=== PATIENT | male | born 1955 | race African-American/Black ===

== ENCOUNTER 2017-07-03 12:47 | Observation (INO) | payer SELFPAY ==
[~2017-07-03] VITALS: Ht 172.7 cm; Wt 81.5 kg
[~2017-07-03 12:47] MED LIST: ZYPR5TAB PO
[2017-07-03 12:52] VITALS: BP 135/76; PULSE 57; RESP 12; TEMP 97.5; O2SAT 97
--- NOTE | 2017-07-03 13:02 | PD ---
HPI Chief Complaint: Chest Pain Time Seen by Provider: 13:00 Travel History International Travel<30 days: No Contact w/Intl Traveler<30days: No Traveled to known affect area: No History of Present Illness HPI 61-year-old male with history of hypertension, schizophrenia, tobacco use, cocaine use, presents to the emergency department for evaluation of left-sided chest pain. This has been intermittent for 2 days. He describes it as left- sided rib pain that cannot be reproduced but it is making his left arm go numb at times. Pain is sharp. He states is becoming more consistent, rather than intermittent. He has felt mildly short of breath. No nausea or vomiting. No sensation of lightheadedness. Patient does have a history of cocaine use. Denies any recent illnesses, fever, or chills. He has no other symptoms to report. PFSH Past Medical History Hx Anticoagulant Therapy: No Cardiovascular Problems: No Chemotherapy: No Cerebrovascular Accident: No Diabetes: No Diminished Hearing: No Respiratory: No Social History Alcohol Use: Yes (MIX DRINKS, BEER OCCAS.) Tobacco Use: Yes (1 PPD) Substance Use: No Allergies-Medications (Allergen,Severity, Reaction): Coded Allergies: No Known Allergies (Verified Allergy, Unknown, 07/03/17) Reported Meds & Prescriptions Reported Meds & Active Scripts Active No Active Prescriptions or Reported Medications Review of Systems Except as stated in HPI: all other systems reviewed are Neg Physical Exam Narrative GENERAL: Well-nourished male patient in no acute distress. SKIN: Focused skin assessment warm/dry. HEAD: Atraumatic. Normocephalic. EYES: Pupils equal and round. No scleral icterus. No injection or drainage. ENT: No nasal bleeding or discharge. Mucous membranes pink and moist. NECK: Trachea midline. No JVD. CARDIOVASCULAR: Regular rate and rhythm. No murmur appreciated. RESPIRATORY: No accessory muscle use. Clear to auscultation. Breath sounds equal bilaterally. GASTROINTESTINAL: Abdomen, nondistended. Left upper quadrant tenderness to palpation. MUSCULOSKELETAL: No obvious deformities. No clubbing. No cyanosis. No edema. NEUROLOGICAL: Awake and alert. No obvious cranial nerve deficits. Motor grossly within normal limits. Normal speech. PSYCHIATRIC: Appropriate mood and affect; insight and judgment normal. Data Data Last Documented VS Vital Signs Date Time Temp Pulse Resp B/P (MAP) Pulse Ox O2 Delivery O2 Flow Rate FiO2 07/03/17 13:48 65 14 149/95 (113) 100 153/93 (113) 07/03/17 13:05 Room Air 07/03/17 12:52 97.5 Orders Orders Electrocardiogram (07/03/17 13:06) Ckmb (Isoenzyme) Profile (07/03/17 13:06) Complete Blood Count With Diff (07/03/17 13:06) Comprehensive Metabolic Panel (07/03/17 13:06) Magnesium (Mg) (07/03/17 13:06) Prothrombin Time / Inr (Pt) (07/03/17 13:06) Act Partial Throm Time (Ptt) (07/03/17 13:06) Troponin I (07/03/17 13:06) Lipase (07/03/17 13:06) Ecg Monitoring (07/03/17 13:06) Bilateral Bp Monitoring (07/03/17 13:06) Iv Access Insert/Monitor (07/03/17 13:06) Oximetry (07/03/17 13:06) Oxygen Administration (07/03/17 13:06) Aspirin Chew (Aspirin Chew) (07/03/17 13:15) Sodium Chloride 0.9% Flush (Ns Flush) (07/03/17 13:15) Chest, Pa & Lat (07/03/17 13:06) Sodium Chlor 0.9% 1000 Ml Inj (Ns 1000 M (07/03/17 13:15) CKMB (07/03/17 13:11) CKMB% (07/03/17 13:11) Admit Order (Ed Use Only) (07/03/17 14:28) Labs Laboratory Tests Test 07/03/17 13:11 White Blood Count 5.5 TH/MM3 Red Blood Count 4.45 MIL/MM3 Hemoglobin 13.0 GM/DL Hematocrit 39.4 % Mean Corpuscular Volume 88.7 FL Mean Corpuscular Hemoglobin 29.3 PG Mean Corpuscular Hemoglobin Concent 33.1 % Red Cell Distribution Width 14.3 % Platelet Count 228 TH/MM3 Mean Platelet Volume 8.0 FL Neutrophils (%) (Auto) 49.2 % Lymphocytes (%) (Auto) 38.3 % Monocytes (%) (Auto) 8.5 % Eosinophils (%) (Auto) 3.2 % Basophils (%) (Auto) 0.8 % Neutrophils # (Auto) 2.7 TH/MM3 Lymphocytes # (Auto) 2.1 TH/MM3 Monocytes # (Auto) 0.5 TH/MM3 Eosinophils # (Auto) 0.2 TH/MM3 Basophils # (Auto) 0.0 TH/MM3 CBC Comment DIFF FINAL Differential Comment Prothrombin Time 9.9 SEC Prothromb Time International Ratio 1.0 RATIO Activated Partial Thromboplast Time 27.5 SEC Blood Urea Nitrogen 11 MG/DL Creatinine 1.50 MG/DL Random Glucose 137 MG/DL Total Protein 6.8 GM/DL Albumin 3.2 GM/DL Calcium Level 8.5 MG/DL Magnesium Level 1.9 MG/DL Alkaline Phosphatase 118 U/L Aspartate Amino Transf (AST/SGOT) 25 U/L Alanine Aminotransferase (ALT/SGPT) 28 U/L Total Bilirubin 0.3 MG/DL Sodium Level 138 MEQ/L Potassium Level 3.6 MEQ/L Chloride Level 104 MEQ/L Carbon Dioxide Level 27.4 MEQ/L Anion Gap 7 MEQ/L Estimat Glomerular Filtration Rate 58 ML/MIN Total Creatine Kinase 200 U/L Creatine Kinase MB 1.6 NG/ML Troponin I LESS THAN 0.02 NG/ML Lipase 111 U/L MDM Medical Decision Making Medical Screen Exam Complete: Yes Emergency Medical Condition: Yes Medical Record Reviewed: Yes Differential Diagnosis Pancreatitis versus ACS versus pleuritic pain versus chest wall pain Narrative Course 61-year-old male presents to emergency department for evaluation of chest pain, left-sided with associated left arm numbness. This is been intermittently occurring over last 2 days. Patient appears overall well. EKG is complete and reviewed by my attending physician without acute abnormality. Patient does have left upper quadrant tenderness to palpation. Lab work is initiated. I'll include a lipase for evaluation of possible pancreatitis. Laboratory Tests Test 07/03/17 13:11 White Blood Count 5.5 TH/MM3 Red Blood Count 4.45 MIL/MM3 Hemoglobin 13.0 GM/DL Hematocrit 39.4 % Mean Corpuscular Volume 88.7 FL Mean Corpuscular Hemoglobin 29.3 PG Mean Corpuscular Hemoglobin Concent 33.1 % Red Cell Distribution Width 14.3 % Platelet Count 228 TH/MM3 Mean Platelet Volume 8.0 FL Neutrophils (%) (Auto) 49.2 % Lymphocytes (%) (Auto) 38.3 % Monocytes (%) (Auto) 8.5 % Eosinophils (%) (Auto) 3.2 % Basophils (%) (Auto) 0.8 % Neutrophils # (Auto) 2.7 TH/MM3 Lymphocytes # (Auto) 2.1 TH/MM3 Monocytes # (Auto) 0.5 TH/MM3 Eosinophils # (Auto) 0.2 TH/MM3 Basophils # (Auto) 0.0 TH/MM3 CBC Comment DIFF FINAL Differential Comment Prothrombin Time 9.9 SEC Prothromb Time International Ratio 1.0 RATIO Activated Partial Thromboplast Time 27.5 SEC Blood Urea Nitrogen 11 MG/DL Creatinine 1.50 MG/DL Random Glucose 137 MG/DL Total Protein 6.8 GM/DL Albumin 3.2 GM/DL Calcium Level 8.5 MG/DL Magnesium Level 1.9 MG/DL Alkaline Phosphatase 118 U/L Aspartate Amino Transf (AST/SGOT) 25 U/L Alanine Aminotransferase (ALT/SGPT) 28 U/L Total Bilirubin 0.3 MG/DL Sodium Level 138 MEQ/L Potassium Level 3.6 MEQ/L Chloride Level 104 MEQ/L Carbon Dioxide Level 27.4 MEQ/L Anion Gap 7 MEQ/L Estimat Glomerular Filtration Rate 58 ML/MIN Total Creatine Kinase 200 U/L Creatine Kinase MB 1.6 NG/ML Troponin I LESS THAN 0.02 NG/ML Lipase 111 U/L Last Impressions Chest X-Ray 07/03/17 1306 Signed Impressions: Service Date/Time: Monday, July 03, 2017 13:21 - CONCLUSION: No acute disease. Vernon Pérez MD Lab work is without acute concern. Chest x-ray is with no acute disease. I discussed the patient my attending physician who agrees the patient benefit from further evaluation and observation the chest pain center. Admission order has been written. Diagnosis Primary Impression: Chest pain Qualified Codes: R07.9 - Chest pain, unspecified Admitting Information Admitting Physician Requests: Observation Scripts No Active Prescriptions or Reported Meds Condition: Stable Diya Robert Jul 03, 2017 13:02
[2017-07-03 13:05] VITALS: BP 142/90; PULSE 51; RESP 16; O2SAT 98
[2017-07-03] MEDS ORDERED: SODIUM CHLOR 0.9% 1000 ML INJ 1,000 ML IV ONE (13:15)
[2017-07-03] MEDS ORDERED: SODIUM CHLORIDE 0.9% FLUSH 10 ML FLUSH IVF PRN (13:15)
[2017-07-03] MEDS ORDERED: ASPIRIN 81 MG CHEW TAB PO ONE (13:15)
[2017-07-03 13:26] LABS: AUTOMATED NEUTROPHIL # 2.7 TH/MM3 (1.8-7.7); BASOPHIL % 0.8 % (0.0-2.0); EOSINOPHIL # 0.2 TH/MM3 (0-0.4); EOSINOPHIL % 3.2 % (0.0-4.0); HEMATOCRIT 39.4 % (39.0-51.0); LYMPH % 38.3 % (9.0-44.0); LYMPHOCYTE # 2.1 TH/MM3 (1.0-4.8); MEAN CELL VOLUME 88.7 FL (80.0-100.0); MEAN CORPUSCULAR HEMOGLOBIN 29.3 PG (27.0-34.0); MEAN CORPUSCULAR HGB CONC 33.1 % (32.0-36.0); MONO % 8.5 % (0.0-8.0); MONOCYTE # 0.5 TH/MM3 (0-0.9); NEUT % 49.2 % (16.0-70.0); PLATELET COUNT 228 TH/MM3 (150-450); RED BLOOD COUNT 4.45 MIL/MM3 (4.50-5.90); RED CELL DISTRIBUTION WIDTH 14.3 % (11.6-17.2); WHITE BLOOD COUNT 5.5 TH/MM3 (4.0-11.0)
[2017-07-03 13:33] LABS: PROTHROMBIN TIME - PATIENT 9.9 SEC (9.8-11.6)
--- NOTE | 2017-07-03 13:39 | RADRPT ---
EXAM DATE/TIME: 07/03/2017 13:21 [facility] COMPARISON: No previous studies available for comparison. INDICATIONS : Chest pain. MEDICAL HISTORY : None. SURGICAL HISTORY : None. ENCOUNTER: Initial ACUITY: 3 days PAIN SCORE: 8/10 LOCATION: Bilateral chest Left lateral thoracic region. FINDINGS: PA and lateral views of the chest demonstrate the lungs to be symmetrically aerated without evidence of mass, infiltrate or effusion. The cardiomediastinal contours are unremarkable. Osseous structure s are intact. CONCLUSION: No acute disease. Vernon Pérez MD on July 03, 2017 at 13:36 Board Certified Radiologist. This report was verified electronically.
[2017-07-03 13:44] LABS: ALBUMIN 3.2 GM/DL (3.4-5.0); ALT (GPT) 28 U/L (12-78); AST (GOT) 25 U/L (15-37); BICARBONATE 27.4 MEQ/L (21.0-32.0); BLOOD UREA NITROGEN 11 MG/DL (7-18); CALCIUM 8.5 MG/DL (8.5-10.1); CHLORIDE 104 MEQ/L (98-107); GLOMERULAR FILTRATION RATE 58 ML/MIN (>89); GLUCOSE,RANDOM 137 MG/DL (74-106); SODIUM (NA) 138 MEQ/L (136-145)
[2017-07-03 13:48] VITALS: BP_SYST 149; BP_SYST 153; BP_DIAS 93; BP_DIAS 95; PULSE 65; RESP 14; O2SAT 100
[2017-07-03 14:02] LABS: ALKALINE PHOSPHATASE 118 U/L (45-117); MAGNESIUM 1.9 MG/DL (1.5-2.5); TOTAL BILIRUBIN ADULT 0.3 MG/DL (0.2-1.0); TOTAL PROTEIN 6.8 GM/DL (6.4-8.2); TROPONIN I LESS THAN 0.02 NG/ML (0.02-0.05)
[2017-07-03] MEDS ORDERED: ACETAMINOPHEN 500 MG CPLT PO PRN (14:45)
[2017-07-03] MEDS ORDERED: ONDANSETRON HCL 4 MG/2 ML VIAL IV PUSH PRN (14:45)
[2017-07-03] MEDS ORDERED: NITROGLYCERIN 0.4 MG SL 25 TABS/BTL SL PRN (14:45)
[2017-07-03 15:52] VITALS: BP 134/79; PULSE 50; RESP 17; TEMP 96.3; O2SAT 98
--- NOTE | 2017-07-03 15:59 | HHI.HP ---
[facility] Service Chest pain center Primary Care Physician No Primary Care Physician Chief Complaint Sharp left chest pain History of Present Illness 61-year-old black male sleeping with head covered and not arousable with verbal stimulation. By shaking his shoulder he would arouse long enough to answer single questions and immediately fade out again. History is very difficult to obtain but it appears he has been having sharp left-sided chest pain for about 3 days. This pain is much worse when he tries to take a deep breath and with certain motion. He gets relief at times by lifting his left arm and putting it in the vertical position. The pain is constant but but much sharper at times. It is interfering with his breathing. He admits to cocaine use and believes it has been several days since he used any. He admits to additional drug use but denies recent. He indicates he drinks some alcohol but when asked if he drinks a sixpack he answers yes. He does not remember any recent falls or fights or trauma to his left chest however in his current state it is unlikely he would have much recollection. He has a history of schizophrenia hypertension hyperlipidemia and is a heavy smoker "a lot". Additional information was very difficult to obtain Past Family Social History Allergies: Coded Allergies: No Known Allergies (Verified Allergy, Unknown, 07/03/17) Past Medical History Schizophrenia hypertension hyperlipidemia Past Surgical History He cannot provide any surgical history Reported Medications Reported Meds & Active Scripts Active No Active Prescriptions or Reported Medications Admits to using cocaine and other drugs Active Ordered Medications Current Medications Medications (Trade) Dose Ordered Sig/Carlos Route Start Time Stop Time Status Last Admin (NS Flush) 2 ml UNSCH PRN IVF 07/03/17 13:15 07/03/17 13:46 (NS Flush) 2 ml BID IV FLUSH 07/03/17 21:00 (Tylenol) 500 mg Q4H PRN PO 07/03/17 14:45 (Zofran Inj) 4 mg Q6H PRN IV PUSH 07/03/17 14:45 (Nitrostat Sl) 0.4 mg Q5M PRN SL 07/03/17 14:45 (Aspirin) 325 mg DAILY PO 07/04/17 09:00 Family History Mother and father are but he can provide no additional information Social History Alcohol heavy Tobacco greater than a pack a day Cocaine recurrent "Other drugs" Physical Exam Vital Signs Vital Signs Date Time Temp Pulse Resp B/P (MAP) Pulse Ox O2 Delivery O2 Flow Rate FiO2 07/03/17 15:16 07/03/17 15:15 50 07/03/17 13:48 65 14 149/95 (113) 100 153/93 (113) 07/03/17 13:05 51 16 142/90 (107) 98 Room Air 07/03/17 12:52 97.5 57 12 135/76 (95) 97 Room Air Physical Exam GENERAL: Somnolent black male with his head covered by the blanket and arousable only with sharp physical stimulation SKIN: Warm and dry. HEAD: Atraumatic. Normocephalic. EYES: Pupils equal and round. No scleral icterus. Conjunctiva injected or drainage. ENT: No nasal bleeding or discharge. Mucous membranes pink and moist. Very poor dental health NECK: Trachea midline. No JVD. CARDIOVASCULAR: Regular rate and rhythm. RESPIRATORY: Exquisitely painful to pressure over the left lower ribs. Breath sounds significantly diminished with guarding GASTROINTESTINAL: Abdomen soft, non-tender, nondistended. Hepatic and splenic margins not palpable. MUSCULOSKELETAL: Extremities without clubbing, cyanosis, or edema. No obvious deformities. NEUROLOGICAL: Very somnolent will answer only one question at a time before he dropped off to sleep. Cranial nerve evaluation not possible patient cannot follow instructions. Appears to move all extremities but further testing not possible. PSYCHIATRIC: Cannot evaluate Laboratory Laboratory Tests Test 07/03/17 13:11 White Blood Count 5.5 Red Blood Count 4.45 Hemoglobin 13.0 Hematocrit 39.4 Mean Corpuscular Volume 88.7 Mean Corpuscular Hemoglobin 29.3 Mean Corpuscular Hemoglobin Concent 33.1 Red Cell Distribution Width 14.3 Platelet Count 228 Mean Platelet Volume 8.0 Neutrophils (%) (Auto) 49.2 Lymphocytes (%) (Auto) 38.3 Monocytes (%) (Auto) 8.5 Eosinophils (%) (Auto) 3.2 Basophils (%) (Auto) 0.8 Neutrophils # (Auto) 2.7 Lymphocytes # (Auto) 2.1 Monocytes # (Auto) 0.5 Eosinophils # (Auto) 0.2 Basophils # (Auto) 0.0 CBC Comment DIFF FINAL Differential Comment Prothrombin Time 9.9 Prothromb Time International Ratio 1.0 Activated Partial Thromboplast Time 27.5 Blood Urea Nitrogen 11 Creatinine 1.50 Random Glucose 137 Total Protein 6.8 Albumin 3.2 Calcium Level 8.5 Magnesium Level 1.9 Alkaline Phosphatase 118 Aspartate Amino Transf (AST/SGOT) 25 Alanine Aminotransferase (ALT/SGPT) 28 Total Bilirubin 0.3 Sodium Level 138 Potassium Level 3.6 Chloride Level 104 Carbon Dioxide Level 27.4 Anion Gap 7 Estimat Glomerular Filtration Rate 58 Total Creatine Kinase 200 Creatine Kinase MB 1.6 Troponin I LESS THAN 0.02 Lipase 111 Result Diagram: 07/03/17 1311 07/03/17 1311 Imaging Repeat chest x-ray with focus on room she will be obtained with suspicion of rib fractures Course We will rule out for ACS using standard protocol. However patient's history and physical exam is entirely consistent with chest wall trauma of some sort. Repeat chest x-ray will be evaluated for rib fractures. If the patient rules out he is not a candidate for exercise stress test due to his somnolence. He will be discharged with instructions for outpatient follow-up. He was reminded that he needs to stop smoking and stop doing drugs as well as his alcohol. Caprini VTE Risk Assessment Caprini VTE Risk Assessment: No/Low Risk (score <= 1) Caprini Risk Assessment Model Point Value = 1 Point Value = 2 Point Value = 3 Point Value = 5 Age 41-60 Minor surgery BMI > 25 kg/m2 Swollen legs Varicose veins or History of unexplained or recurrent spontaneous Oral contraceptives or hormone replacement Sepsis (< 1 month) Serious lung disease, including pneumonia (< 1 month) Abnormal pulmonary function Acute myocardial infarction Congestive heart failure (< 1 month) History of inflammatory bowel disease Medical patient at bed rest Age 61-74 Arthroscopic surgery Major open surgery (> 45 min) Laparoscopic surgery (> 45 min) Malignancy Confined to bed (> 72 hours) Immobilizing plaster cast Central venous access Age >= 75 History of VTE Family history of VTE Factor V Leiden Prothrombin [id number] Lupus anticoagulant Anticardiolipin antibodies Elevated serum homocysteine Heparin-induced thrombocytopenia Other congenital or acquired thrombophilia Stroke (< 1 month) Elective arthroplasty Hip, pelvis, or leg fracture Acute spinal cord injury (< 1 month) Prophylaxis Regimen Total Risk Factor Score Risk Level Prophylaxis Regimen 0-1 Low Early ambulation 2 Moderate Order ONE of the following: *Sequential Compression Device (SCD) *Heparin 5000 units SQ BID 3-4 Higher Order ONE of the following medications: *Heparin 5000 units SQ TID *Enoxaparin/Lovenox 40 mg SQ daily (WT < 150 kg, CrCl > 30 mL/min) *Enoxaparin/Lovenox 30 mg SQ daily (WT < 150 kg, CrCl > 10-29 mL/min) *Enoxaparin/Lovenox 30 mg SQ BID (WT < 150 kg, CrCl > 30 mL/min) AND/OR *Sequential Compression Device (SCD) 5 or more Highest Order ONE of the following medications: *Heparin 5000 units SQ TID (Preferred with Epidurals) *Enoxaparin/Lovenox 40 mg SQ daily (WT < 150 kg, CrCl > 30 mL/min) *Enoxaparin/Lovenox 30 mg SQ daily (WT < 150 kg, CrCl > 10-29 mL/min) *Enoxaparin/Lovenox 30 mg SQ BID (WT < 150 kg, CrCl > 30 mL/min) AND *Sequential Compression Device (SCD) Onel Phillip MD Jul 03, 2017 15:59
[2017-07-03 16:25] VITALS: PULSE 69
--- NOTE | 2017-07-03 16:32 | EKG ---
Date Performed: 07/03/2017 Time Performed: 13:05:27 PTAGE: 61 years EKG: SINUS BRADYCARDIA BORDERLINE ECG NO PREVIOUS TRACING DOCTOR: Onel Phillip Interpretating Date/Time 07/03/2017 16:32:22
[2017-07-03 17:14] LABS: TROPONIN I LESS THAN 0.02 NG/ML (0.02-0.05)
[2017-07-03] MEDS: SODIUM CHLORIDE 0.9% FLUSH 10 ML FLUSH IV FLUSH SCH (19:38)
[2017-07-03 20:35] LABS: TROPONIN I LESS THAN 0.02 NG/ML (0.02-0.05)
[2017-07-03 20:43] VITALS: BP 125/78; PULSE 52; RESP 18; TEMP 98.2; O2SAT 100
[2017-07-04 00:59] VITALS: PULSE 58
[2017-07-04 03:38] VITALS: BP 139/87; PULSE 51; RESP 18; TEMP 98.1; O2SAT 99
[2017-07-04 07:22] VITALS: BP 143/94; PULSE 49; RESP 18; TEMP 97.3; O2SAT 93
[2017-07-04] MEDS: SODIUM CHLORIDE 0.9% FLUSH 10 ML FLUSH IV FLUSH SCH (08:13)
[2017-07-04] MEDS ORDERED: ASPIRIN 325 MG TAB PO SCH (09:00)
[2017-07-04] MEDS ORDERED: REGADENOSON INJ 0.4 MG/5 ML SYR ONE (10:11)
--- NOTE | 2017-07-04 11:32 | RADRPT ---
EXAM DATE/TIME: 07/04/2017 10:07 [facility] COMPARISON: No previous studies available for comparison. INDICATIONS : Left sided chest pain for three days. Angina. DOSE: 25.4 mCi Tc99m Myoview at stress. 8.5 mCi Tc99m Myoview at rest. 0.4 mg Lexiscan STRESS SYMPTOMS: Dyspnea and weakness. EJECTION FRACTION: 46% MEDICAL HISTORY : Hypertension. Schizophrenia. SURGICAL HISTORY : None. ENCOUNTER: Initial ACUITY: 3 days PAIN SCALE: 5/10 LOCATION: Left chest TECHNIQUE: The patient underwent pharmacologic stress with infusion of prescribed dose. Continuous ECG tracing was monitored during stress. Gated SPECT imaging was performed after stress and conventional SPECT i maging was performed at rest. The examination was performed on a SPECT/CT scanner, both attenuation and non-corrected datasets were reviewed. FINDINGS: DISTRIBUTION: The maximum perfused segment at stress is in the anterior wall. PERFUSION STUDY: The pattern of perfusion at stress is within normal limits. GATED STUDY: There is intact wall motion and thickening without hypokinetic or dyskinetic segments. CONCLUSION: No ischemia is seen. The ejection fraction is in the low-normal range of 46%. RISK CATEGORY: Low (<1% Annual Mortality Rate) Vernon Pérez MD on July 04, 2017 at 11:29 Board Certified Radiologist. This report was verified electronically.
--- NOTE | 2017-07-04 12:13 | HHI.DCPOC ---
Discharge Care Plan Diagnosis: (1) Musculoskeletal chest pain (2) Substance abuse Goals to Promote Your Health * To prevent worsening of your condition and complications * To maintain your health at the optimal level Directions to Meet Your Goals Take your medications as prescribed Follow your dietary instruction Follow activity as directed Keep your appointments as scheduled Take your immunizations and boosters as scheduled If your symptoms worsen call your PCP, if no PCP go to Urgent Care Center or Emergency Room Smoking is Dangerous to Your Health. Avoid second hand smoke Call the 24-hour hour crisis hotline for domestic abuse at Mame Reina Jul 04, 2017 12:13
--- NOTE | 2017-07-04 12:20 | HHI.DS ---
Discharge Summary Admission Date Jul 03, 2017 at 14:29 Discharge Date: Jul 04, 2017 Admitting Diagnosis chest pain (1) Musculoskeletal chest pain Diagnosis: Principal ICD Codes: R07.89 - Other chest pain Status: Acute (2) Substance abuse Diagnosis: Principal ICD Codes: F19.10 - Other psychoactive substance abuse, uncomplicated Status: Acute Procedures Last 48 hours Impressions Chest X-Ray 07/03/17 1306 Signed Impressions: Service Date/Time: Monday, July 03, 2017 13:21 - CONCLUSION: No acute disease. Vernon Pérez MD Brief History 61-year-old male with history of schizophrenia, substance abuse, hypertension hyperlipidemia presents to the emergency room for further evaluation 3 chest pain. Chest pain center. Ruled out by 3 sets of EKGs, cardiac enzymes, monitor overnight. He evaluated by Dr. Phillip. Chest discomfort suggestive of musculoskeletal pain due to easily reproduced with palpation, grimaces with movement and hurting to take a deep breath. Due to multiple risk factors proceeded with chemical stress test. Encouraged and stressed the importance of not using cocaine and quitting smoking. CBC/BMP: 07/03/17 1311 07/03/17 1311 Significant Findings Laboratory Tests Test 07/03/17 13:11 07/03/17 16:00 07/03/17 19:35 07/03/17 22:50 Red Blood Count 4.45 MIL/MM3 (4.50-5.90) Monocytes (%) (Auto) 8.5 % (0.0-8.0) Creatinine 1.50 MG/DL (0.60-1.30) Random Glucose 137 MG/DL (74-106) Albumin 3.2 GM/DL (3.4-5.0) Alkaline Phosphatase 118 U/L (45-117) Estimat Glomerular Filtration Rate 58 ML/MIN (>89) Troponin I LESS THAN 0.02 NG/ML LESS THAN 0.02 NG/ML LESS THAN 0.02 NG/ML Urine Cocaine Screen POS (NEG) PE at Discharge GENERAL: Alert WN, WD, NAD, pleasant, Alyssa male HEAD: NC, AT CV: RRR, without murmur, rub, gallop, no JVD, S1-S2 no S3-S4. Chest wall tender with palpation and movement. RESP: Clear lungs throughout bilateral, no crackles, wheeze, rhonchi, symmetrical chest rise, nonlabored, able to speak in full sentences MS: Normal tone 4 extremities, full range of motion PSYCH: A+O 3, pleasant affect, appropriate speech, mood. Apologetic due to drowsiness yesterday during exam. SKIN: Normal turgor, normal texture Pt Condition on Discharge: Good Discharge Disposition: Discharge Home Discharge Instructions DIET: Follow Instructions for: Heart Healthy Diet Activities you can perform: Regular-No Restrictions Mame Reina Jul 04, 2017 12:20
[2017-07-04 12:48] VITALS: O2SAT 98
--- NOTE | 2017-07-04 14:32 | EKG ---
Date Performed: 07/03/2017 Time Performed: 20:52:42 PTAGE: 61 years EKG: SINUS BRADYCARDIA BORDERLINE ECG NO SIG CHANGE PREVIOUS TRACING : 07/03/2017 16.20 DOCTOR: Onel Phillip Interpretating Date/Time 07/04/2017 14:31:30
--- NOTE | 2017-07-04 14:33 | EKG ---
Date Performed: 07/03/2017 Time Performed: 16:20:20 PTAGE: 61 years EKG: SINUS BRADYCARDIA BORDERLINE ECG NO CHANGE PREVIOUS TRACING : 07/03/2017 13.05 DOCTOR: Onel Phillip Interpretating Date/Time 07/04/2017 14:31:58
--- NOTE | 2017-07-04 14:35 | TR ---
Date Performed: 07/04/2017 Time Performed: 10:21:30 DOCTOR: Onel Phillip DRUG LIST: CLINICAL HISTORY: CHEST PAIN REASON FOR TEST: CHEST PAIN REASON FOR ENDING: OBSERVATION: CONCLUSION: Lexiscan stress test was performed under standard four minute protocol. Radionuclide was injected one minute prior to ending the test. No electrocardiographic abormalities were present to suggest ischemia. Nuclear imaging and interpretation are pending. COMMENTS:
== END 2017-07-04 14:09 | disposition home or self-care (01) ==
LOC: NEPE 12:47 → NEDA 14:29 → NEPHCDU 15:31
PROVIDERS: ADMIT Internal Medicine Interventional Cardiology; ATTEND Internal Medicine Interventional Cardiology
DX: R07.81 Pleurodynia (principal); F19.10 Other psychoactive substance abuse, uncomplicated; F20.9 Schizophrenia, unspecified; I10 Essential (primary) hypertension; E78.5 Hyperlipidemia, unspecified; F14.90 Cocaine use, unspecified, uncomplicated; R20.0 Anesthesia of skin; R06.02 Shortness of breath; F17.210 Nicotine dependence, cigarettes, uncomplicated; R40.0 Somnolence; R00.1 Bradycardia, unspecified; R94.31 Abnormal electrocardiogram [ECG] [EKG]
CPT/HCPCS: 71046; 78452; 80053; 80307; 82550; 82552; 83690; 83735; 84484; 85025; 85610; 85730; 93005; 93017; 99285; A9502; G0378; J2785; J7030